=== PATIENT | female | born 1975 | race Caucasian/White ===

== ENCOUNTER → 2021-03-14 | Outpatient (CLI) | payer OTHER ==
[~2021-03-14] MED LIST: CELEBREX200 MG PO; COLACE100 MG PO; IBU800 MG PO; LO-DOSE ASPIRIN81 MG PO; NEURONTIN300 MG PO; PEPCID20 MG PO; ROXICODONE TAB 55 MG PO; TYLENOL EXTRA500 MG PO; ZOFRAN 4 MG TAB4 MG PO
== END ==
LOC: KOH-I 10:45
DX: M86.9 Osteomyelitis, unspecified (principal); M19.072 Primary osteoarthritis, left ankle and foot
CPT/HCPCS: 73718